=== PATIENT | female | born 1935 | race Caucasian/White ===

== ENCOUNTER 2018-06-12 11:28 | Inpatient (IN) | payer MEDICAID, MEDICARE ==
[2018-06-12] MEDS ORDERED: LORazepam 1MG TABLET PO ONE ×2 (14:00→15:30)
[2018-06-12] MEDS ORDERED: LORazepam 0.5MG TABLET ONE ×2 (15:12→17:10)
[2018-06-12 15:13] LABS: BASOPHILS # (AUTO) 0.15 x10^3/uL (0-0.1); BASOPHILS % (AUTO) 2 % (0-1); EOSINOPHILS # (AUTO) 0.17 x10^3/uL (0-0.4); EOSINOPHILS % (AUTO) 2 % (1-7); LYMPHOCYTES # (AUTO) 3.04 x10^3/uL (1-3.4); LYMPHOCYTES % (AUTO) 39 % (22-44); MD NO; MEAN CORPUSCULAR HEMOGLOBIN 27.6 pg (27.0-34.8); MEAN CORPUSCULAR VOLUME 83.6 fL (80-100); MEAN PLATELET VOLUME 8.4 fL (7.4-10.4); MONOCYTES # (AUTO) 0.56 x10^3/uL (0.2-0.8); MONOCYTES % (AUTO) 7 % (2-9); NEUTROPHILS # (AUTO) 3.83 x10^3/uL (1.8-6.8); NEUTROPHILS % (AUTO) 49 % (42-75); PLATELET COUNT 379 x10^3/uL (130-400); RED BLOOD COUNT 4.88 x10^6/uL (3.82-5.3); RED CELL DISTRIBUTION WIDTH 16.1 % (9.6-15.2)
[2018-06-12 15:25] LABS: ALANINE AMINOTRANSFERASE 18 U/L (12-78); ALBUMIN 3.2 g/dL (3.4-5.0); ANION GAP 7 mmol/L (5-15); CALCIUM 8.6 mg/dL (8.5-10.1); CHLORIDE 103 mmol/L (98-107); CREATININE 0.93 mg/dL (0.55-1.02)
[2018-06-12 15:27] LABS: ALKALINE PHOSPHATASE 79 U/L (45-117); BILIRUBIN,TOTAL 0.3 mg/dL (0.2-1.0); TOTAL PROTEIN 7.4 g/dL (6.4-8.2)
[2018-06-12] MEDS ORDERED: LORazepam 0.5MG TABLET PO ONE (15:30)
[2018-06-12] MEDS ORDERED: INSU100V8 SQ (17:23)
[2018-06-12] MEDS ORDERED: RISP1TAB3 PO (17:23)
[2018-06-12] MEDS ORDERED: LEVO100T5 PO (17:24)
[2018-06-12] MEDS ORDERED: LORA0.5T PO (17:26)
[2018-06-12] MEDS ORDERED: DONE10TA14 PO (17:27)
[2018-06-12] MEDS ORDERED: ESCI20TA PO (17:29)
[2018-06-12] MEDS ORDERED: INSULIN REGULAR 100 UNITS/ML, 3ML VIAL SQ-INSULIN ONE (18:00)
[2018-06-12] MEDS ORDERED: INSULIN REGULAR 100 UNITS/ML, 3ML VIAL ONE (18:22)
[2018-06-12] MEDS: SODIUM CHLORIDE 0.9% 1,000 ML IV SCH (18:24)
[2018-06-12] MEDS ORDERED: LORazepam 0.5MG TABLET PO PRN (18:30)
[2018-06-12] MEDS ORDERED: ONDANSETRON 2MG/ML, 2ML IVPush PRN (18:30)
[2018-06-12] MEDS ORDERED: BISACODYL 10 MG SUPP PR PRN (18:30)
[2018-06-12] MEDS ORDERED: ACETAMINOPHEN 325 MG TABLET PO PRN (18:30)
[2018-06-12] MEDS ORDERED: POLYETHYLENE GLYCOL 17 GM PACKET PO PRN (18:30)
[2018-06-12] MEDS ORDERED: SODIUM CHLORIDE FLUSH 10ML SYR IVF PRN (19:00)
[2018-06-12 19:06] LABS: HEMOGLOBIN A1C 8.4 % (4.2-6.3)
[2018-06-12 19:13] LABS: FOLATE LEVEL > 20.0 ng/mL (3.1-17.5)
[2018-06-12 19:45] VITALS: BP 121/73
[2018-06-12] MEDS: INSULIN LISPRO 100 UNITS/ML, PEN SQ-INSULIN SCH (21:00)
[2018-06-12] MEDS: RISPERIDONE 1 MG TABLET PO SCH (21:00)
[2018-06-12] MEDS: INSULIN GLARGINE 100 UNITS/ML, PEN SQ-INSULIN SCH (21:00)
[2018-06-13] MEDS: SODIUM CHLORIDE 0.9% 1,000 ML IV SCH ×3 (01:22→23:51)
[2018-06-13 01:52] VITALS: BP 129/78
[2018-06-13 02:15] LABS: MICROSCOPIC AUTO
[2018-06-13 02:17] LABS: CULTURE INDICATED? YES
[2018-06-13 02:25] LABS: AMPHETAMINE SCREEN, URINE Negative (Negative); BARBITURATE SCREEN, URINE Negative (Negative); BENZODIAZEPINE SCREEN, URINE Negative (Negative); CANNABINOID SCREEN, URINE Negative (Negative); COCAINE SCREEN, URINE Negative (Negative); METHADONE SCREEN, URINE Negative (Negative); OPIATE SCREEN, URINE Negative (Negative)
[2018-06-13] MEDS: LEVOTHYROXINE 100 MCG TABLET PO SCH (04:08)
[2018-06-13 06:39] VITALS: BP 115/71
[2018-06-13 06:40] LABS: BASOPHILS # (AUTO) 0.05 x10^3/uL (0-0.1); BASOPHILS % (AUTO) 1 % (0-1); EOSINOPHILS % (AUTO) 4 % (1-7); LYMPHOCYTES # (AUTO) 2.97 x10^3/uL (1-3.4); LYMPHOCYTES % (AUTO) 40 % (22-44); MD NO; MEAN CORPUSCULAR HEMOGLOBIN 27.7 pg (27.0-34.8); MEAN CORPUSCULAR HGB CONC 33.1 g/dL (32.4-35.8); MEAN CORPUSCULAR VOLUME 83.4 fL (80-100); MEAN PLATELET VOLUME 8.4 fL (7.4-10.4); MONOCYTES # (AUTO) 0.53 x10^3/uL (0.2-0.8); MONOCYTES % (AUTO) 7 % (2-9); NEUTROPHILS # (AUTO) 3.67 x10^3/uL (1.8-6.8); NEUTROPHILS % (AUTO) 49 % (42-75); PLATELET COUNT 382 x10^3/uL (130-400); RED BLOOD COUNT 4.67 x10^6/uL (3.82-5.3); RED CELL DISTRIBUTION WIDTH 16.1 % (9.6-15.2)
[2018-06-13 06:53] LABS: ALANINE AMINOTRANSFERASE 18 U/L (12-78); ALBUMIN 2.9 g/dL (3.4-5.0); ANION GAP 6 mmol/L (5-15); CALCIUM 8.4 mg/dL (8.5-10.1); CHLORIDE 109 mmol/L (98-107)
[2018-06-13 06:55] LABS: ALKALINE PHOSPHATASE 70 U/L (45-117); BILIRUBIN,TOTAL 0.3 mg/dL (0.2-1.0)
[2018-06-13] MEDS: INSULIN LISPRO 100 UNITS/ML, PEN SQ-INSULIN SCH ×4 (07:00→20:08)
[2018-06-13] MEDS: CITALOPRAM 20 MG TABLET PO SCH (08:41)
[2018-06-13] MEDS: RISPERIDONE 1 MG TABLET PO SCH ×2 (08:41→20:07)
[2018-06-13] MEDS: DONEPEZIL 10 MG TABLET PO SCH (08:41)
[2018-06-13] MEDS: SENNA/DOCUSATE TABLET PO SCH (08:42)
[2018-06-13 12:21] VITALS: BP 139/66
[2018-06-13 19:46] VITALS: BP 101/63
[2018-06-13] MEDS: INSULIN GLARGINE 100 UNITS/ML, PEN SQ-INSULIN SCH (20:08)
[2018-06-14 01:26] VITALS: BP 111/68
[2018-06-14] MEDS: LEVOTHYROXINE 100 MCG TABLET PO SCH (06:00)
[2018-06-14 06:42] VITALS: BP 156/69
[2018-06-14] MEDS: RISPERIDONE 1 MG TABLET PO SCH (07:57)
[2018-06-14] MEDS: CITALOPRAM 20 MG TABLET PO SCH (07:57)
[2018-06-14] MEDS: DONEPEZIL 10 MG TABLET PO SCH (07:57)
[2018-06-14] MEDS: INSULIN LISPRO 100 UNITS/ML, PEN SQ-INSULIN SCH ×2 (07:58→12:15)
[2018-06-14] MEDS ORDERED: HALOPERIDOL 2 MG/ML ORAL SOL PO PRN (08:30)
[2018-06-14] MEDS: SENNA/DOCUSATE TABLET PO SCH (09:00)
[2018-06-14] MEDS: SODIUM CHLORIDE 0.9% 1,000 ML IV SCH (10:24)
[2018-06-14] MEDS ORDERED: HALOPERIDOL 5 MG/ML IM PRN (11:00)
== END 2018-06-14 14:04 | DRG 884 ==
LOC: ED 13:31 → EDIP 17:38 → 3NW 18:36
PROVIDERS: ADMIT Family Medicine; ATTEND Family Medicine
DX: F03.91 Unspecified dementia, unspecified severity, with behavioral disturbance (principal); E44.1 Mild protein-calorie malnutrition; E11.65 Type 2 diabetes mellitus with hyperglycemia; E03.9 Hypothyroidism, unspecified; E78.5 Hyperlipidemia, unspecified; I10 Essential (primary) hypertension; B35.1 Tinea unguium; M20.11 Hallux valgus (acquired), right foot; M20.12 Hallux valgus (acquired), left foot; Z79.4 Long term (current) use of insulin
CPT/HCPCS: 36415; 80053; 80307; 81001; 82140; 82607; 82746; 82962; 83036; 85025; 87086; 93005; J1630; J1815